=== PATIENT | female | born 1945 | race Caucasian/White ===

== ENCOUNTER 2016-07-17 14:06 | Emergency (ER) | payer MEDICARE, OTHER ==
[~2016-07-17] VITALS: Ht 157.5 cm; Wt 71.4 kg
[~2016-07-17 14:06] MED LIST: CYCL5TAB PO; LORA-392 PO; LORT5TAB PO; NAPR550 PO; Z.0.NO CURRENT MEDS
[2016-07-17 14:11] VITALS: BP 150/96; PULSE 103; RESP 16; TEMP 97.4; O2SAT 95
[2016-07-17] MEDS ORDERED: ALPR0.25 PO (14:27)
[2016-07-17] MEDS ORDERED: LISI10TA3 PO (14:27)
[2016-07-17 14:37] LABS: BLOOD, URINE SMALL (NEG); GLUCOSE,URINE NEG (NEG); KETONE, URINE NEG (NEG); NITRITE,URINE NEG (NEG)
[2016-07-17 14:43] LABS: METHOD OF COLLECTION CLEAN CATCH; URINE COLOR YELLOW (YELLW/STRAW)
[2016-07-17 14:44] LABS: COMMENT (UR) CULT NOT INDICATED; COMMENT2 (UR) MUCOUS PRESENT; CULTURE IF INDICATED CULT NOT INDICATED; SQUAMOUS EPITHELIAL CELL URINE 0-5 /hpf (0-5)
[2016-07-17] MEDS ORDERED: CIPR-9 PO (14:57)
--- NOTE | 2016-07-17 14:58 | PD ---
HPI Chief Complaint: Complaint Time Seen by Provider: 14:49 Travel History International Travel<30 days: No Contact w/Intl Traveler<30days: No Traveled to known affect area: No History of Present Illness HPI Patient presents with complaints of vaginal bleeding around noon today reports some pink stains on her underwear and tissue after urination. Postmenopausal. Patient is unsure if bleeding is vaginal or urinary. Denies any nausea vomiting diarrhea or fever. No new rashes. Denies sex for 15 years. Unable to recall last pelvic exam. No family history of uterine cancer. Denies any urinary frequency or pain. PFSH Past Medical History Cardiovascular Problems: Yes (HTN) Hypertension: Yes Influenza Vaccination: No ?: Not Menopausal: Yes Social History Alcohol Use: No Tobacco Use: No Substance Use: No Allergies-Medications (Allergen,Severity, Reaction): Coded Allergies: No Known Allergies (Verified , 07/17/16) Reported Meds & Prescriptions Reported Meds & Active Scripts Active Reported Alprazolam 0.25 Mg Tab 0.25 Mg PO BID PRN Lisinopril 10 Mg Tab 10 Mg PO DAILY Review of Systems General / Constitutional: No: Fever Eyes: No: Visual changes HENT: No: Headaches Cardiovascular: No: Chest Pain or Discomfort Respiratory: No: Shortness of Breath Gastrointestinal: No: Abdominal Pain Genitourinary: Positive: Vaginal Bleeding, No: Dysuria Musculoskeletal: No: Pain Skin: No Rash Neurologic: No: Weakness Psychiatric: No: Depression Endocrine: No: Polydipsia Hematologic/Lymphatic: No: Easy Bruising Physical Exam Narrative GENERAL: Well-nourished, well-developed patient. SKIN: Focused skin assessment warm/dry. HEAD: Normocephalic. EYES: No scleral icterus. No injection or drainage. NECK: Supple, trachea midline. No JVD or lymphadenopathy. CARDIOVASCULAR: Regular rate and rhythm without murmurs, gallops, or rubs. RESPIRATORY: Breath sounds equal bilaterally. No accessory muscle use. GASTROINTESTINAL: Abdomen soft, non-tender, nondistended. MUSCULOSKELETAL: No cyanosis, or edema. BACK: Nontender without obvious deformity. No CVA tenderness. Patient declines pelvic exam to assess source of bleeding Data Data Last Documented VS Vital Signs Date Time Temp Pulse Resp B/P Pulse Ox O2 Delivery O2 Flow Rate FiO2 07/17/16 14:11 97.4 103 16 150/96 95 Orders Urinalysis - C+S If Indicated (07/17/16 14:10) Labs Laboratory Tests Test 07/17/16 14:20 Urine Collection Type CLEAN CATCH Urine Color YELLOW Urine Turbidity SLIGHT Urine pH 6.0 Urine Specific [place] 1.013 Urine Protein NEG mg/dL Urine Glucose (UA) NEG mg/dL Urine Ketones NEG mg/dL Urine Occult Blood SMALL Urine Nitrite NEG Urine Bilirubin NEG Urine Leukocyte Esterase TRACE Urine RBC 4-9 /hpf Urine WBC 3-5 /hpf Urine Squamous Epithelial 0-5 /hpf Cells Urine Amorphous Sediment FEW Microscopic Urinalysis Comment CULT NOT INDICATED Urine Collection Time 1420 MDM Medical Decision Making Medical Screen Exam Complete: Yes Emergency Medical Condition: Yes Differential Diagnosis Uterine cancer, UTI, hormonal reaction, benign hematuria Narrative Course Assessment and plan discussed with patient at bedside. Urinalysis noted. Diagnosis Primary Impression: Hematuria Patient Instructions: General Instructions Additional Instructions: Antibiotic as prescribed. Encourage fluids and cranberry. Follow-up with PCP for further workup and possible pelvic ultrasound. Med/Other Pt SpecificInfo: Prescription(s) given Scripts Ciprofloxacin (Cipro)500 Mg Swl631 Mg PO BID #5 TAB Ref 0 Prov:Soren Sy MD 07/17/16 Disposition: 01 DISCHARGE HOME Condition: Good Soren Sy MD Jul 17, 2016 14:57
== END 2016-07-17 15:06 | disposition home or self-care (01) ==
LOC: PHED 14:06
DX: R31.9 Hematuria, unspecified (principal)
CPT/HCPCS: 81001; 99284